=== PATIENT | male | born 1950 | race Caucasian/White ===

== ENCOUNTER 2016-11-25 12:01 | Inpatient (IN) | payer MEDICARE, OTHER ==
[~2016-11-25] VITALS: Ht 185.4 cm; Wt 128.5 kg
[2016-11-25] MEDS ORDERED: SODIUM CHLORIDE FLUSH 10ML SYR IVF ONE (13:00)
[2016-11-25 13:13] LABS: HEMATOCRIT 49.2 % (39.2-51.8); HEMOGLOBIN 16.7 g/dL (13.7-18.0); WHITE BLOOD COUNT 7.7 x10^3/uL (3.4-10)
[2016-11-25] MEDS ORDERED: LOSA50TA6 PO (13:33)
[2016-11-25 13:51] LABS: BLOOD UREA NITROGEN 13 mg/dL (7-18)
[2016-11-25] MEDS ORDERED: OMNIPAQUE 350 MG/ML, 100ML BOTTLE ONE (14:55)
[2016-11-25] MEDS ORDERED: SODIUM CHLORIDE FLUSH 10ML SYR IVF PRN (16:00)
[2016-11-25] MEDS ORDERED: ACETAMINOPHEN 325 MG TABLET PO PRN (17:00)
[2016-11-25] MEDS ORDERED: POLYETHYLENE GLYCOL 17 GM PACKET PO PRN (17:00)
[2016-11-25] MEDS ORDERED: ONDANSETRON 2MG/ML, 2ML IVPush PRN (17:00)
[2016-11-25] MEDS ORDERED: OXYcodone IR 5MG TABLET PO PRN (17:00)
[2016-11-25] MEDS ORDERED: LABETALOL 5MG/ML, 20ML IVPush PRN (17:00)
[2016-11-25] MEDS: ENALAPRILAT 1.25 MG/ML, 2ML IVPush PRN (18:24)
[2016-11-25] MEDS: SODIUM CHLORIDE 0.9% 1,000 ML IV SCH (20:02)
[2016-11-25 20:20] VITALS: BP 125/73
[2016-11-26 04:45] LABS: HEMATOCRIT 45.8 % (39.2-51.8); HEMOGLOBIN 15.5 g/dL (13.7-18.0); WHITE BLOOD COUNT 8.7 x10^3/uL (3.4-10)
[2016-11-26 04:51] LABS: ASPARTATE AMINO TRANSFERASE 18 U/L (15-37); BLOOD UREA NITROGEN 12 mg/dL (7-18)
[2016-11-26 05:05] VITALS: BP 134/48
[2016-11-26] MEDS: SODIUM CHLORIDE 0.9% 1,000 ML IV SCH (08:00)
[2016-11-26] MEDS: SENNA/DOCUSATE TABLET PO SCH (08:40)
[2016-11-26] MEDS ORDERED: GADOBUTROL 10 MMOL/10 ML PFS ONE (10:21)
[2016-11-26] MEDS: LOSARTAN 50MG TABLET PO SCH (11:22)
[2016-11-26 17:16] VITALS: BP 152/85
[2016-11-26 20:53] VITALS: BP 147/85
[2016-11-26 22:52] VITALS: BP 147/90
[2016-11-26] MEDS: ENALAPRILAT 1.25 MG/ML, 2ML IVPush PRN (22:59)
[2016-11-27 01:26] VITALS: BP 122/70
[2016-11-27 08:00] VITALS: BP 114/70
[2016-11-27] MEDS: SENNA/DOCUSATE TABLET PO SCH (08:44)
[2016-11-27] MEDS: LOSARTAN 50MG TABLET PO SCH (08:44)
[2016-11-27 11:50] VITALS: BP 123/80
[2016-11-27 14:23] VITALS: BP 148/90
[2016-11-27] MEDS: ENALAPRILAT 1.25 MG/ML, 2ML IVPush PRN (14:30)
[2016-11-27 15:31] VITALS: BP 128/80
[2016-11-27 19:45] VITALS: BP 135/82
[2016-11-27] MEDS ORDERED: OXYcodone IR 5MG TABLET PO PRN (22:00)
[2016-11-27] MEDS ORDERED: ACETAMINOPHEN 325 MG TABLET PO PRN (22:00)
[2016-11-27] MEDS ORDERED: POLYETHYLENE GLYCOL 17 GM PACKET PO PRN (22:00)
[2016-11-28 03:29] VITALS: BP 137/82
[2016-11-28 05:22] LABS: HEMATOCRIT 44.8 % (39.2-51.8); WHITE BLOOD COUNT 7.3 x10^3/uL (3.4-10)
[2016-11-28 05:33] LABS: BLOOD UREA NITROGEN 12 mg/dL (7-18)
[2016-11-28] MEDS ORDERED: SENNA/DOCUSATE TABLET ONE (07:57)
[2016-11-28 07:59] VITALS: BP 131/79
[2016-11-28] MEDS: SENNA/DOCUSATE TABLET PO SCH (08:47)
[2016-11-28] MEDS: LOSARTAN 50MG TABLET PO SCH (08:47)
[2016-11-28] MEDS ORDERED: LOSARTAN 50MG TABLET PO SCH (09:00)
[2016-11-28] MEDS ORDERED: SENNA/DOCUSATE TABLET PO SCH (09:00)
[2016-11-28] MEDS ORDERED: AMOXICILLIN 500 MG CAPSULE PO SCH (10:00)
[2016-11-28] MEDS ORDERED: OMEPRAZOLE 20 MG CAPSULE.DR PO SCH (10:00)
[2016-11-28] MEDS ORDERED: CLARITHROMYCIN 500 MG TABLET PO SCH (10:00)
[2016-11-28 13:18] VITALS: BP 153/92
[2016-11-28] MEDS ORDERED: AMLODIPINE 5 MG TABLET PO ONE (14:00)
[2016-11-28 17:50] VITALS: BP 142/79
[2016-11-28] MEDS: ENALAPRILAT 1.25 MG/ML, 2ML IVPush PRN (18:06)
[2016-11-28 19:15] VITALS: BP 130/80
[2016-11-29 03:10] VITALS: BP 129/82
[2016-11-29 05:45] LABS: BLOOD UREA NITROGEN 10 mg/dL (7-18)
[2016-11-29 07:47] VITALS: BP 144/86
[2016-11-29] MEDS: LOSARTAN 50MG TABLET PO SCH (08:50)
[2016-11-29] MEDS: SENNA/DOCUSATE TABLET PO SCH (08:51)
[2016-11-29 10:17] VITALS: BP 135/77
[2016-11-29] MEDS ORDERED: LOSARTAN 25MG TABLET PO ONE (10:30)
[2016-11-29 14:51] VITALS: BP 144/82
[2016-11-29] MEDS: ENALAPRILAT 1.25 MG/ML, 2ML IVPush PRN (15:26)
[2016-11-29] MEDS ORDERED: AMLODIPINE 5 MG TABLET PO SCH ×2 (18:00→21:00)
[2016-11-29 19:51] VITALS: BP 136/86
[2016-11-29] MEDS: AMLODIPINE 5 MG TABLET PO SCH (21:07)
[2016-11-30 00:10] VITALS: BP 136/86
[2016-11-30 03:27] VITALS: BP 130/78
[2016-11-30 05:25] LABS: BLOOD UREA NITROGEN 13 mg/dL (7-18)
[2016-11-30 07:09] VITALS: BP 133/85
[2016-11-30] MEDS: SENNA/DOCUSATE TABLET PO SCH (07:49)
[2016-11-30] MEDS: AMLODIPINE 5 MG TABLET PO SCH (07:49)
[2016-11-30] MEDS ORDERED: LOSARTAN 50MG TABLET PO SCH (09:00)
[2016-11-30] MEDS ORDERED: AMLO5TAB2 PO (09:32)
[2016-11-30] MEDS ORDERED: LOSA50TA2 PO (09:32)
[2016-11-30 10:46] VITALS: BP 133/81
== END 2016-11-30 14:20 | disposition home or self-care (01) | DRG 64 ==
LOC: ED 13:26 → EDIP 15:43 → CSU 18:01 → 4WST 11-26 15:37 → DCLOUNGE 11-30 13:52
PROVIDERS: ADMIT Family Medicine; ATTEND Family Medicine
PROC: 5A09357 Assistance with Respiratory Ventilation, Less than 24 Consecutive Hours, Continuous Positive Airway Pressure (ICD-10-PCS; principal; 2016-11-29)
DX: I61.4 Nontraumatic intracerebral hemorrhage in cerebellum (principal); Q28.3 Other malformations of cerebral vessels; C71.9 Malignant neoplasm of brain, unspecified; B96.81 Helicobacter pylori [H. pylori] as the cause of diseases classified elsewhere; I10 Essential (primary) hypertension; I99.8 Other disorder of circulatory system; H93.19 Tinnitus, unspecified ear; K21.9 Gastro-esophageal reflux disease without esophagitis; Z87.442 Personal history of urinary calculi; Z87.828 Personal history of other (healed) physical injury and trauma; Z80.3 Family history of malignant neoplasm of breast; D43.1 Neoplasm of uncertain behavior of brain, infratentorial; Q27.9 Congenital malformation of peripheral vascular system, unspecified
CPT/HCPCS: 36415; 70450; 70496; 70498; 70553; 80048; 80053; 82040; 85025; 85610; 85730; 86677; 87081; 87338; 93005; 99285; A9585; J2405; Q9967; J7030

== ENCOUNTER → 2017-02-08 | Outpatient (CLI) | payer MEDICARE, OTHER ==
[~2017-02-08] MED LIST: AMLO5TAB2 PO; LOSA50TA2 PO; LOSA50TA6 PO
== END | disposition home or self-care (01) ==
LOC: CFH 08:20
PROVIDERS: ATTEND Nurse Practitioner Family
DX: D18.02 Hemangioma of intracranial structures (principal)
CPT/HCPCS: 70450

== ENCOUNTER 2017-03-16 23:22 | Emergency (ER) | payer MEDICARE, OTHER ==
[~2017-03-16] VITALS: Ht 185.4 cm; Wt 127.0 kg
[2017-03-17 00:28] LABS: BASOPHILS # (AUTO) 0.01 x10^3/uL (0-0.1); BASOPHILS % (AUTO) 0 % (0-1); EOSINOPHILS # (AUTO) 0.06 x10^3/uL (0-0.4); EOSINOPHILS % (AUTO) 1 % (1-7); LYMPHOCYTES # (AUTO) 0.26 x10^3/uL (1-3.4); LYMPHOCYTES % (AUTO) 2 % (22-44); MD NO; MEAN CORPUSCULAR HEMOGLOBIN 29.8 pg (27.5-34.5); MEAN CORPUSCULAR HGB CONC 33.8 g/dL (33.2-36.2); MEAN CORPUSCULAR VOLUME 88.3 fL (81-97); MEAN PLATELET VOLUME 9.8 fL (7.4-10.4); MONOCYTES # (AUTO) 0.36 x10^3/uL (0.2-0.8); MONOCYTES % (AUTO) 3 % (2-9); NEUTROPHILS # (AUTO) 10.54 x10^3/uL (1.8-6.8); NEUTROPHILS % (AUTO) 94 % (42-75); PLATELET COUNT 156 x10^3/uL (130-400); RED BLOOD COUNT 5.43 x10^6/uL (4.38-5.82); RED CELL DISTRIBUTION WIDTH 13.5 % (9.4-14.8)
[2017-03-17] MEDS ORDERED: MORPHINE SULFATE 4 MG/ML, 1ML IVPush PRN (00:30)
[2017-03-17] MEDS ORDERED: PROMETHAZINE 25 MG/ML, 1ML IM ONE (00:30)
[2017-03-17] MEDS ORDERED: SODIUM CHLORIDE 0.9% 1,000ML IVBOLUS ONE (00:30)
[2017-03-17] MEDS ORDERED: SODIUM CHLORIDE FLUSH 10ML SYR IVF ONE (00:30)
[2017-03-17] MEDS ORDERED: ONDANSETRON 2MG/ML, 2ML IVPush ONE (00:30)
[2017-03-17 00:40] LABS: ANION GAP 11 mmol/L (5-15); CALCIUM 8.5 mg/dL (8.5-10.1); CHLORIDE 108 mmol/L (98-107); CREATININE 1.24 mg/dL (0.7-1.3)
[2017-03-17 00:41] LABS: ALANINE AMINOTRANSFERASE 45 U/L (12-78); ALBUMIN 3.9 g/dL (3.4-5.0)
[2017-03-17 00:45] LABS: ALKALINE PHOSPHATASE 72 U/L (45-117); BILIRUBIN,TOTAL 0.9 mg/dL (0.2-1.0); TOTAL PROTEIN 7.4 g/dL (6.4-8.2); TROPONIN I < 0.015 ng/mL (0.000-0.045)
[2017-03-17] MEDS ORDERED: OMNIPAQUE 350 MG/ML, 100ML BOTTLE ONE (01:02)
[2017-03-17 02:34] LABS: MICROSCOPIC NOT IND
[2017-03-17 02:41] LABS: CULTURE INDICATED? NO
[2017-03-17 02:54] VITALS: BP 123/81
== END 2017-03-17 02:55 | disposition home or self-care (01) ==
LOC: ED 03-17 01:04
DX: K52.9 Noninfective gastroenteritis and colitis, unspecified (principal); R60.0 Localized edema; I10 Essential (primary) hypertension; K21.9 Gastro-esophageal reflux disease without esophagitis
CPT/HCPCS: 36415; 70450; 71045; 74177; 80053; 81003; 83690; 83880; 84484; 85025; 93005; 93970; 96360; 96361; 99285; J7030; Q9967

== ENCOUNTER → 2017-10-17 | Outpatient (CLI) | payer MEDICARE, OTHER | END | disposition home or self-care (01) | LOC: CFH 09:27 | PROVIDERS: ATTEND Physician Assistant Medical | DX: R10.2 Pelvic and perineal pain (principal); I10 Essential (primary) hypertension; G47.30 Sleep apnea, unspecified | CPT/HCPCS: 76857 ==

== ENCOUNTER → 2017-11-24 | Outpatient (CLI) | payer MEDICARE, OTHER ==
[~2017-11-24] MED LIST changes: -AMLO5TAB2 PO; +AMLO5TAB7 PO; -LOSA50TA6 PO; +LOSA50TA7 PO
== END | disposition home or self-care (01) ==
LOC: CFH 08:43
PROVIDERS: ATTEND Neurological Surgery
DX: Q28.3 Other malformations of cerebral vessels (principal)
CPT/HCPCS: 70450

== ENCOUNTER → 2017-12-14 | Outpatient (CLI) | payer MEDICARE, OTHER | END | disposition home or self-care (01) | LOC: CFH 06:56 | PROVIDERS: ATTEND Nurse Practitioner Family | DX: S83.232A Complex tear of medial meniscus, current injury, left knee, initial encounter (principal); M25.462 Effusion, left knee; X58.XXXA Exposure to other specified factors, initial encounter; Y93.89 Activity, other specified; Y92.89 Other specified places as the place of occurrence of the external cause; Y99.8 Other external cause status ==

== ENCOUNTER → 2018-01-09 | Outpatient (CLI) | payer MEDICARE, OTHER ==
[~2018-01-09] MED LIST changes: +OMNIPAQUE 350 MG/ML, 150 ML BOTTLE ONE
== END | disposition home or self-care (01) ==
LOC: CFH 07:24
PROVIDERS: ATTEND Family Medicine
DX: K42.9 Umbilical hernia without obstruction or gangrene (principal); N28.1 Cyst of kidney, acquired; Z90.49 Acquired absence of other specified parts of digestive tract
CPT/HCPCS: 74177; 82565; Q9967

== ENCOUNTER → 2018-01-26 | Outpatient (CLI) | payer MEDICARE, OTHER ==
[~2018-01-26] MED LIST changes: +AMLO-150 PO; -AMLO5TAB7 PO; +LOSA50TA14 PO; -LOSA50TA7 PO; -OMNIPAQUE 350 MG/ML, 150 ML BOTTLE ONE
== END | disposition home or self-care (01) ==
LOC: CFH 10:06
PROVIDERS: ATTEND Family Medicine
DX: Z01.811 Encounter for preprocedural respiratory examination (principal); Q79.1 Other congenital malformations of diaphragm; S83.20 Tear of unspecified meniscus, current injury; X58.XXXD Exposure to other specified factors, subsequent encounter
CPT/HCPCS: 71046